=== PATIENT | female | born 1960 | race Caucasian/White ===

== ENCOUNTER 2023-09-02 05:55 | Day surgery (SDC) | payer MEDICAID ==
[~2023-09-02] VITALS: Ht 157.5 cm; Wt 53.5 kg
[2023-09-02 07:42] LABS: CALCIUM 8.7 mg/dL (8.4-11.0); CREATININE 0.69 mg/dL (0.55-1.30); POTASSIUM 3.7 mmol/L (3.5-5.1)
[2023-09-02] MEDS ORDERED: ceFAZolin SODIUM 1 GM VIAL ONE (07:45)
[2023-09-02 08:00] VITALS: O2SAT 100
[2023-09-02] MEDS ORDERED: ONDANSETRON HCL 4 MG/2 ML VIAL IVP PRN (08:45)
[2023-09-02] MEDS ORDERED: MORPHINE 4 MG INJ. 4 MG/ML VIAL IVP PRN (08:45)
[2023-09-02] MEDS ORDERED: HYDROmorphone 1 MG/ML INJ. CARTRIDGE IVP PRN (08:45)
[2023-09-02] MEDS ORDERED: KETOROLAC TROMETHAMINE 30 MG VIAL IVP PRN (08:45)
[2023-09-02] MEDS ORDERED: METOCLOPRAMIDE HCL 10 MG/2 ML VIAL IVP PRN (08:45)
[2023-09-02] MEDS ORDERED: fentaNYL CITRATE/PF 100 MCG/2 ML AMP ONE (12:44)
[2023-09-02] MEDS ORDERED: MIDAZOLAM HCL 5 MG/5 ML VIAL ONE (12:45)
[2023-09-02 13:24] VITALS: BP_SYST 118; PULSE 63; RESP 17
== END 2023-09-02 10:55 | disposition home or self-care (01) ==
LOC: SMU 05:55 → SDS 05:55
PROVIDERS: ATTEND Podiatrist Primary Podiatric Medicine
DX: R22.42 Localized swelling, mass and lump, left lower limb (principal); D21.22 Benign neoplasm of connective and other soft tissue of left lower limb, including hip; I10 Essential (primary) hypertension; E78.5 Hyperlipidemia, unspecified; K21.9 Gastro-esophageal reflux disease without esophagitis; E03.9 Hypothyroidism, unspecified; M06.9 Rheumatoid arthritis, unspecified; M19.90 Unspecified osteoarthritis, unspecified site; Z95.4 Presence of other heart-valve replacement; Z79.82 Long term (current) use of aspirin; Z79.890 Hormone replacement therapy; Z79.899 Other long term (current) drug therapy
CPT/HCPCS: 28041; 80048; 87081; 36415; 88305; 88312; J3490; J0690; J2250; J2704; J3010; J7030; 88304; J2001